=== PATIENT | male | born 1960 | race Caucasian/White ===

== ENCOUNTER 2017-06-03 12:26 | Emergency (ER) | payer OTHER ==
[~2017-06-03] VITALS: Ht 188 cm; Wt 83.0 kg
[2017-06-03] MEDS ORDERED: OMEPRAZOLE20 MG PO (12:53)
== END 2017-06-03 12:59 | disposition home or self-care (01) ==
LOC: ED 12:26
DX: Z00.8 Encounter for other general examination (principal)

== ENCOUNTER 2018-10-01 13:10 | Emergency (ER) | payer OTHER ==
[~2018-10-01] VITALS: Ht 188 cm; Wt 83.0 kg
[~2018-10-01 13:10] MED LIST: OMEPRAZOLE20 MG PO
[2018-10-01] MEDS ORDERED: VENTOLIN HFA18 GM INH (16:05)
[2018-10-01] MEDS ORDERED: PREDNISONE20 MG PO (16:05)
--- NOTE | 2018-10-02 07:18 | EKG ---
[facility] [address] [place] [address] Signed Normal sinus rhythm with sinus arrhythmia Left axis deviation Pulmonary disease pattern Abnormal ECG When compared with ECG of 15-NOV-2016 12:25, premature atrial complexes are no longer present Confirmed by LISA BOTELLO MD ([id number]) on 10/02/2018 7:18:32 AM Electronically Signed By: LISA BOTELLO MD 10/02/18 0718 PATIENT NAME: STINSONNISREEN Electrocardiogram DATE OF : 62 PHYSICIAN: LISA BOTELLO MD REPORT #: [id number] REPORT IS CONFIDENTIAL AND NOT TO BE RELEASED WITHOUT AUTHORIZATION
== END 2018-10-01 16:17 | disposition home or self-care (01) ==
LOC: ED 13:10
DX: J42 Unspecified chronic bronchitis (principal); F17.200 Nicotine dependence, unspecified, uncomplicated; Z79.899 Other long term (current) drug therapy
CPT/HCPCS: 71046; 80053; 84484; 85025; 93005; 93010; 94640; 99285-25; 99406; J7512

== ENCOUNTER 2022-10-30 09:48 | Emergency (ER) | payer OTHER, BC ==
[~2022-10-30] VITALS: Ht 188 cm; Wt 83.0 kg
[~2022-10-30 09:48] MED LIST changes: +PREDNISONE20 MG PO; +VENTOLIN HFA18 GM INH
[2022-10-30] MEDS ORDERED: METFORMIN HCL1000 MG PO (10:00)
== END 2022-10-30 10:25 | disposition home or self-care (01) ==
LOC: ED 09:48
DX: S61.012A Laceration without foreign body of left thumb without damage to nail, initial encounter (principal); E11.9 Type 2 diabetes mellitus without complications; W26.0XXA Contact with knife, initial encounter; F17.200 Nicotine dependence, unspecified, uncomplicated; Z79.84 Long term (current) use of oral hypoglycemic drugs
CPT/HCPCS: 12001; 99282-25

== ENCOUNTER 2022-11-18 06:10 | Day surgery (SDC) | payer BC ==
[~2022-11-18] VITALS: Ht 188 cm; Wt 61.0 kg
[~2022-11-18 06:10] MED LIST changes: +METFORMIN HCL1000 MG PO; +OMEPRAZOLE10 MG PO
[2022-11-18 06:29] VITALS: BP 147/79
[2022-11-18] MEDS ORDERED: PERFECT IRON25 MG PO (06:37)
[2022-11-18] MEDS ORDERED: MELATONIN10 MG PO (06:39)
--- NOTE | 2022-11-18 08:18 | NUR ---
11/18/22 0818 Gretel Wilson 0813- PT ARRIVES TO PACU AWAKE AND TALKING. PT REPORTS NO PAIN OR NAUSEA. RESP EVEN AND UNLABORED. OXYGEN SAT MID 90'S ON 2L VIA NC. PT ENCOURAGED TO PASS FLATUS. 0816- PT LAYING IN BED WITH EYES CLOSED. RESP EVEN AND UNLABORED. OXYGEN SAT LOW TO MID 90'S ON 2L VIA NC.
[2022-11-18 08:59] VITALS: BP 133/85
--- NOTE | 2022-11-20 10:59 | OR ---
[facility] [address], [place] [address] Signed DATE OF OPERATION: 11/18/2022 SURGEON: Lee Carpio MD PREOPERATIVE DIAGNOSIS: Colon screening. POSTOPERATIVE DIAGNOSIS: Normal colon to cecum. PROCEDURE: Total colonoscopy to cecum. ANESTHESIA: Intravenous sedation, fentanyl 150 mcg and Versed 6 mg. INDICATION: This 61-year-old white man is a patient of ALYSSIA Ibrahim and was referred for screening colonoscopy. He has never had a colonoscopy in the past. He has no blood per rectum, diarrhea, or constipation. His hematocrit is 36. He does have gastroesophageal reflux for which he takes PPI medication as well as reactive airways for which he takes albuterol. He is admitted to undergo colonoscopy for screening. He understands the risk of bleeding, infection, and perforation. FINDINGS: The prep was good. Complete colonoscopy was undertaken to the cecum without question. There was no evidence of polyps, diverticular formation, colitis, or cancer. DESCRIPTION OF PROCEDURE: The patient was brought to the endoscopy suite and placed in the lateral decubitus position, given intravenous sedation to the point of slurred speech and nystagmus. Digital rectal examination was normal. An Olympus video colonoscope was passed in the rectum and manipulated throughout the colon ultimately intubating the cecum. Ileocecal valve and appendiceal orifice were normal in appearance. The scope was withdrawn from that point and examination throughout showed no sign of abnormality, specifically no polyps, diverticular formation, colitis, or cancer. Retroflexed view was normal as well. The scope was removed and the patient was taken to the recovery room in good condition. Electronically Signed By: LEE CARPIO MD 11/20/22 1059 PATIENT NAME: NISREEN STINSON OPERATIVE REPORT DATE OF : 62 REPORT #: [id number] PHYSICIAN: LEE CARPIO MD PCP: IZZY MANCUSO PA-C REPORT IS CONFIDENTIAL AND NOT TO BE RELEASED WITHOUT AUTHORIZATION [facility] [address], [place] [address] Signed CONCLUDING DIAGNOSIS: Normal colon. PLAN: Recommend repeat colonoscopy in 10 years given no family history of colon cancer. It can be done sooner if symptoms should occur of course. He will return to the ongoing care of vivi Ibrahim. MD MÓNICA Hinton/MODL /[id number] cc: ALYSSIA Ibrahim Copies: ~ Electronically Signed By: LEE CARPIO MD 11/20/22 1059 PATIENT NAME: NISREEN STINSON OPERATIVE REPORT DATE OF : 62 REPORT #: [id number] PHYSICIAN: LEE CARPIO MD PCP: IZZY MANCUSO PA-C REPORT IS CONFIDENTIAL AND NOT TO BE RELEASED WITHOUT AUTHORIZATION
== END 2022-11-18 09:04 | disposition home or self-care (01) ==
LOC: DS 06:10 → OPS 06:10 → DS 07:30 → OPS 07:30
PROVIDERS: ATTEND Surgery
DX: Z12.11 Encounter for screening for malignant neoplasm of colon (principal); K21.00 Gastro-esophageal reflux disease with esophagitis, without bleeding; J68.3 Other acute and subacute respiratory conditions due to chemicals, gases, fumes and vapors; Z79.899 Other long term (current) drug therapy
CPT/HCPCS: G0121; 99153; G0500; J2250; J3010; J7121

== ENCOUNTER 2024-04-07 10:32 | Emergency (ER) | payer BC ==
[~2024-04-07] VITALS: Ht 188 cm; Wt 99.5 kg
[~2024-04-07 10:32] MED LIST changes: +MELATONIN10 MG PO; +PERFECT IRON25 MG PO
[2024-04-07] MEDS ORDERED: SODIUM CHLORIDE 0.9% 1,000 ML IV ONE (10:45)
[2024-04-07] MEDS ORDERED: ondansetron HCL 4 MG/2 ML VIAL IV ONE (10:45)
[2024-04-07] MEDS ORDERED: TAMSULOSIN HCL0.4 MG PO (10:48)
[2024-04-07] MEDS ORDERED: VENTOLIN HFA18 GM INH (10:48)
[2024-04-07 10:49] LABS: BASOPHILS 1.2 % (0-2); EOSINOPHILS 1.1 % (0-6); HEMATOCRIT 47.5 % (35.0-50.0); HEMOGLOBIN 16.2 g/dL (12.0-18.0); LYMPHOCYTES 29.3 % (24-44); MCH 27.2 (27-36); MCHC 34.1 g/dl (30-36); MCV 79.7 fl (81-99); NEUTROPHILS 62.4 % (39-80); PLATELET COUNT 312 K/uL (140-440); RBC 5.96 M/ul (4.3-5.7); RDW 14.3 (10.5-15.0)
[2024-04-07 11:08] LABS: ALBUMIN 4.3 g/dL (3.4-5.0); ALBUMIN/GLOBULIN RATIO 1.1 (1.1-2.4); ANION GAP 19.9 (7-21); BUN/CREATININE RATIO 10.82 (6.0-28.6); CALCIUM 10.2 mg/dL (8.5-10.1); CREATININE, SERUM 1.94 mg/dL (0.70-1.30); POTASSIUM 3.9 mmol/L (3.5-5.1); PROTEIN, TOTAL 8.2 g/dL (6.4-8.2)
[2024-04-07 11:37] LABS: BILIRUBIN, URINE NEGATIVE (negative); BLOOD/HGB, URINE NEGATIVE (Negative); LEUK ESTERASE, URINE NEGATIVE (negative)
[2024-04-07 11:47] LABS: CRYSTALS, URINE NONE SEEN (0-1+); RED BLOOD CELLS, URINE 0-1 /hpf (0-5); WHITE BLOOD CELLS, URINE 0-1 /HPF (0-5)
[2024-04-07 11:48] LABS: COLLECTION TYPE, URINE CLEAN CATCH; REFLEX CULTURE, URINE No (No)
[2024-04-07 12:24] LABS: KETONE, URINE SMALL (Negative)
[2024-04-07 12:25] LABS: EPITHELIAL CELLS, URINE SQUAMOUS 1+ /lpf (0-1+); NITRITE, URINE NEGATIVE (negative)
[2024-04-07 12:26] LABS: BACTERIA, URINE 1+ /hpf (negative)
[2024-04-07 12:27] LABS: CASTS, URINE HYALINE 2+ \\lpf
--- NOTE | 2024-04-07 13:53 | EKG ---
[facility] [address] [facility] [place] [address] Signed Sinus bradycardia Left axis deviation Abnormal ECG When compared with ECG of 01-OCT-2018 13:19, Vent. rate has decreased BY 32 BPM Confirmed by Jesus Schroeder MD ([id number]) on 04/07/2024 1:53:38 PM Electronically Signed By: JESUS SCHROEDER 04/07/24 1353 PATIENT NAME: STINSONNISREEN Electrocardiogram DATE OF : 62 PHYSICIAN: JESUS SCHROEDER REPORT #: [id number] REPORT IS CONFIDENTIAL AND NOT TO BE RELEASED WITHOUT AUTHORIZATION
[2024-04-07 14:07] VITALS: BP 139/90
== END 2024-04-07 14:02 | disposition home or self-care (01) ==
LOC: ED 10:32
PROVIDERS: Emergency Medicine
DX: R53.1 Weakness (principal); F17.200 Nicotine dependence, unspecified, uncomplicated; Z79.899 Other long term (current) drug therapy; Z79.84 Long term (current) use of oral hypoglycemic drugs
CPT/HCPCS: 36415; 71045; 80053; 81001; 84484; 85025; 93005; 93010; 96374; 99285-25; J2405; J7030